=== PATIENT | female | born 1990 | race Caucasian/White ===

== ENCOUNTER 2016-08-03 11:14 | Emergency (ER) | payer OTHER ==
--- NOTE | ~2016-08-03 | CR63 ---
[facility] A Service of [facility] & [facility] RADIOLOGY TEXT RESULTS PATIENT: CORNEL HDEZ LOCATION: SED : [birth year] UNIT #: [id number] AGE: [address]: Zohra Cummings APRN SEX: F ORDER DR: [id number] [place] [id number] E MR#: [id number] Acc #: [id number] NAME: CORNEL HDEZ : 1990 SEX: F STUDY DATE/TIME: 08/03/2016 11:55 UNIT: SED ROOM: STUDY DESCRIPTION: CR Chest 2 View Attending Physician: Zohra Cummings A.P.R.N. Ordering Physician: Zohra Cummings A.P.R.N. Primary Care Physician: uRfus Sterling M.D. MEDICAL IMAGING REPORT This report is preliminary unless electronic signature is present. EXAM Chest PA and lateral 08/03 COMPARISON 06/14/2011 HISTORY Wheezing and cough for 3 weeks FINDINGS PA and lateral views are obtained. Cardiovascular configuration is normal and the lungs are clear. CONCLUSION Normal Dictated by... Gorge Varela M.D. THIS IS AN ELECTRONICALLY VERIFIED REPORT Gorge Varela M.D. at 08/04/2016 7:26 AM MIR/cristobal TD: 08/03/2016 12:46 JOB #: [id number] MEDICAL IMAGING REPORT Page 1 of 1
[~2016-08-03 11:14] MED LIST: CIPRO PO; DELTASONE20 MG PO; MACROBID100 M1 PO; MOTRIN IB200 M1 PO; NO MEDICATIONS; PHENERGAN PO; PHENERGAN25 M1; PRENATAL1 TA1 PO; PYRIDIUM PO; SEROQUEL PO; TUSNEL LIQUID178 ML PO; ULTRAM PO
[2016-08-03] MEDS ORDERED: RISPERDAL0.5 MG PO (11:19)
[2016-08-03] MEDS ORDERED: ANXIETY/DEPRESSION (11:20)
[2016-08-03] MEDS ORDERED: DOESNT KNOW NAMES (11:21)
== END 2016-08-03 13:12 | disposition home or self-care (01) ==
LOC: SED 11:14
DX: J20.9 Acute bronchitis, unspecified (principal); J01.90 Acute sinusitis, unspecified; F17.210 Nicotine dependence, cigarettes, uncomplicated; Z79.899 Other long term (current) drug therapy
CPT/HCPCS: 71020; 94640; 99283

== ENCOUNTER 2016-09-20 10:47 | Emergency (ER) | payer OTHER ==
--- NOTE | ~2016-09-20 | CR63 ---
[facility] A Service of [facility] RADIOLOGY TEXT RESULTS PATIENT: CORNEL CORRALES LOCATION: SED : [birth year] UNIT #: [id number] AGE: [address]: WINSTON RIVAS SEX: F ORDER DR: [id number] [address] [address] [id number] E MR#: [id number] Acc #: [id number] NAME: CORNEL CORRALES : 1990 SEX: F STUDY DATE/TIME: 09/20/2016 11:10 UNIT: SED ROOM: STUDY DESCRIPTION: CR Chest 2 View Attending Physician: Winston Rivas Ordering Physician: Winston Rivas Primary Care Physician: Rufus Sterling M.D. MEDICAL IMAGING REPORT This report is preliminary unless electronic signature is present. EXAM Two-view chest HISTORY Cough, congestion x1 month, history of asthma, smoker. COMPARISON 08/03/2016 FINDINGS PA and lateral examination of the chest upright shows a good expansion of the parenchyma with a normal distribution of the pulmonary vascularity. There is no indication of congestion, effusion, infiltrate, tumor, or nodular density. The pleural reflections and diaphragmatic contours are normal. The cardiac silhouette and mediastinal anatomy is within normal limits. IMPRESSION Normal chest. Dictated by... Nic Corrales M.D. THIS IS AN ELECTRONICALLY VERIFIED REPORT Nic Corrales M.D. at 09/21/2016 12:30 PM BENJAMIN/keily TD: 09/20/2016 23:42 JOB #: [id number] [facility] A Service of [facility] RADIOLOGY TEXT RESULTS PATIENT: CORNEL CORRALES LOCATION: SED : 90 UNIT #: [id number] AGE: [address]: WINSTON RIVAS SEX: F ORDER DR: MEDICAL IMAGING REPORT Page 1 of 1
[~2016-09-20 10:47] MED LIST changes: +ANXIETY/DEPRESSION; +DOESNT KNOW NAMES; +RISPERDAL0.5 MG PO
== END 2016-09-20 11:55 | disposition home or self-care (01) ==
LOC: SED 10:47
DX: J20.9 Acute bronchitis, unspecified (principal); R03.0 Elevated blood-pressure reading, without diagnosis of hypertension; F32.9 Major depressive disorder, single episode, unspecified; F17.210 Nicotine dependence, cigarettes, uncomplicated
CPT/HCPCS: 71020; 99283

== ENCOUNTER 2016-10-17 10:32 | Emergency (ER) | payer OTHER ==
--- NOTE | ~2016-10-17 | CT2 ---
[facility] A Service of [facility] RADIOLOGY TEXT RESULTS PATIENT: CORNEL HDEZ LOCATION: SED : 90 UNIT #: [id number] AGE: [address]: Fidel Trivedi MD SEX: F ORDER DR: [id number] [address] [address] [id number] E MR#: [id number] Acc #: [id number] NAME: CORNEL HDEZ : 1990 SEX: F STUDY DATE/TIME: 10/17/2016 12:49 UNIT: SED ROOM: STUDY DESCRIPTION: CT Abd and Pelv W Cont Attending Physician: Fidel Trivedi M.D. Ordering Physician: Fidel Trivedi M.D. Primary Care Physician: Rufus Sterling M.D. MEDICAL IMAGING REPORT This report is preliminary unless electronic signature is present. EXAM CT abdomen and pelvis with contrast INDICATIONS Blood diarrhea for 1.5 weeks, nausea and abdomen pain. TECHNIQUE The patient was given 100 mL of Isovue-370 and axial 5-mm images were obtained through the abdomen and pelvis. Sagittal and coronal reconstructions were generated. This CT exam was performed with one or more of the following radiation dose reduction techniques: Automatic exposure control, adjustment of mA and/or kV according to patient size, and iterative reconstruction. FINDINGS The lung bases are clear. The liver, gallbladder, spleen, pancreas, adrenal glands and kidneys are normal. Aorta is normal in size and there is no adenopathy. Uterus, adnexal regions and ovaries are normal. The left colon shows some mild wall thickening without surrounding inflammation. This is consistent with colitis. The bones are unremarkable. IMPRESSION There appears to be mild wall thickening involving most of the left colon consistent with colitis. There is no surrounding inflammation, abscess or free air. Otherwise, the study is negative. Dictated by... Rommel Vizcaino M.D. [facility] A Service of [facility] RADIOLOGY TEXT RESULTS PATIENT: CORNEL HDEZ LOCATION: SED : 90 UNIT #: [id number] AGE: [address]: Fidel Trivedi MD SEX: F ORDER DR: THIS IS AN ELECTRONICALLY VERIFIED REPORT Rommel Vizcaino M.D. at 10/18/2016 6:09 AM MYRIAM/celia TD: 10/17/2016 21:42 JOB #: [id number] MEDICAL IMAGING REPORT Page 1 of 1
[2016-10-17 11:42] LABS: URINE SOURCE CLEAN CATCH
[2016-10-17 11:52] LABS: URINE APPEARANCE CLEAR; URINE BILIRUBIN NEG (NEG); URINE BLOOD 1+ (NEG); URINE COLOR YELLOW; URINE GLUCOSE NEG (NORM); URINE KETONE NEG (NEG); URINE LEUKOCYTE ESTERASE NEG (NEG); URINE NITRATE NEG (NEG); URINE PROTEIN NEG (NEG); URINE SPECIFIC GRAVITY <=1.005 (1.003-1.035); URINE UROBILINOGEN 0.2 MG/DL (NORM)
[2016-10-17 11:53] LABS: MICRO INDICATED? YES
[2016-10-17 12:03] LABS: BASOPHIL% 0.7 % (0-2.5); EOSINOPHIL# 0.1 X10e3 (0-0.7); HEMATOCRIT 38.6 % (35.0-45.0); HEMOGLOBIN 13.2 gm/dL (12.0-16.0); LYMPHOCYTE# 3.5 X10e3 (1.0-3.5); MEAN CELL VOLUME 92.5 FL (83-96); MEAN CORPUSCULAR HEMOGLOBIN 31.7 PG (28-34); MEAN CORPUSCULAR HGB CONC 34.3 g/dL (30-36); MONOCYTE# 0.5 X10e3 (0-1.0); MONOCYTE% 6.9 % (3.0-12.0); NEUTROPHIL# 2.9 X10e3 (1.5-7.1); NEUTROPHIL% 41.4 % (40-75); PLATELET COUNT 270 X10e3 (140-420); RED BLOOD COUNT 4.18 X10e (3.90-5.30); RED CELL DISTRIBUTION WIDTH 13.6 % (11.0-15.5)
[2016-10-17 12:04] LABS: CULTURE INDICATED? YES; URINE BACTERIA NEG (NEG); URINE SQUAMOUS EPITHELIAL CELL MODERATE /[HPF]
[2016-10-17 12:05] LABS: DIFF IND NO
[2016-10-17 12:21] LABS: ALKALINE PHOSPHATASE 59 U/L (32-92); ALT (SGPT) 15 U/L (10-40); AST (SGOT) 16 U/L (10-42); BILIRUBIN,TOTAL 0.2 mg/dL (0.2-2.0); BLOOD UREA NITROGEN 14 mg/dL (9-23); CALCIUM SERUM 8.6 mg/dL (8.4-10.2); CARBON DIOXIDE 25 mmol/L (22-31); CHLORIDE 107 mmol/L (100-111); CREATININE SERUM 0.7 mg/dL (0.6-1.4); GLOM FILT RATE Estimated 119.6 mL/min (>60); GLUCOSE FASTING 109 mg/dL (70-110); LIPASE 25 U/L (22-51); POTASSIUM 3.8 mmol/L (3.5-5.1); SODIUM 137 mmol/L (135-145)
[2016-10-17 12:22] LABS: BILIRUBIN, DIRECT <0.1 mg/dL (0.0-0.2); BILIRUBIN,INDIRECT 0.1 mg/dL (0.0-0.9)
== END 2016-10-17 14:55 | disposition home or self-care (01) ==
LOC: SED 10:32
PROVIDERS: Emergency Medicine
DX: K52.9 Noninfective gastroenteritis and colitis, unspecified (principal); R11.2 Nausea with vomiting, unspecified; R19.7 Diarrhea, unspecified; F41.9 Anxiety disorder, unspecified; F17.200 Nicotine dependence, unspecified, uncomplicated
CPT/HCPCS: 36415; 74177; 80048; 80076; 81003; 83690; 84703; 85025; 87086; 96361; 96365; 96375; 99284; C9113; J1170; J1956; J2405; Q9967

== ENCOUNTER 2016-11-12 19:35 | Emergency (ER) | payer OTHER ==
[~2016-11-12] VITALS: Ht 154.9 cm; Wt 85.9 kg
[2016-11-12] MEDS ORDERED: HYDROXYZINE HCL25 M1 (20:02)
[2016-11-12] MEDS ORDERED: BUSPAR (20:02)
== END 2016-11-12 20:50 | disposition home or self-care (01) ==
LOC: SED 19:35
DX: J02.0 Streptococcal pharyngitis (principal); F41.9 Anxiety disorder, unspecified; F17.200 Nicotine dependence, unspecified, uncomplicated
CPT/HCPCS: 87880; 96374; 99283; J0561